=== PATIENT | female | born 1930 | race Caucasian/White ===

== ENCOUNTER 2018-05-24 10:43 | Inpatient (IN) | payer MEDICARE, BC ==
[~2018-05-24] VITALS: Ht 165.1 cm; Wt 68.0 kg
[2018-05-24] VITALS (7 sets, daily range): BP systolic 121–134; BP diastolic 67–74; BMI 25.0
--- NOTE | ~2018-05-24 | MORECARE ---
CASE MANAGEMENT DISCHARGE SUMMARY PATIENT: VIVI MONTOYA UNIT: [id number] ADM DATE: 05/24/18 AGE: 87 : 32 SEX: F ROOM/BED: D.3240 AUTHOR: RAY,DOC PHYSICIAN: REFERRING PHYSICIAN: DENNIS YOUNG MD DATE OF SERVICE: 05/28/18 Discharge Plan Patient Name: VIVI MONTOYA Facility: [facility]:[place] : 1930 Planned Disposition: Home Anticipated Discharge Date: 05/26/18 Discharge Date: 05/26/2018 Expected LOS: 2 Initial Reviewer: [email or web address] Initial Review Date: 05/24/2018 Generated: 05/28/18 10:02 am DCP- Discharge Planning Updated by [email or web address]: Viky Joseph on 05/24/18 2:[address] Patient Name: VIVI MONTOYA Admission Status: ER Accout number: [id number] Admission Date: 05-24-2018 : 1930 Admission Diagnosis: Attending: LIBORIO YOUNG Current LOS: 1 Anticipated DC Date: 05-26-2018 Planned Disposition: Home Primary Insurance: MEDICARE A & B Discharge Planning Comments: CM met with patient and her daughter, Ludy Fernández to complete initial dc planning assessment. CM educated patient on the CM role and verbal consent given by patient to complete assessment. Patient lives at home alone independently. At discharge patient plans to return home and feels this is a safe discharge. Daughter reports there is family that can stay with the patient at dc if needed. Patient stated she has a cane and a borrowed walker. She may want her own walker ordered at dc. CM discussed home health, rehab, and op therapy if needed at dc. Patient unsure of discharge needs at this time. CM will continue to follow and will assist as needed with dc plans/needs. See below for more assessment information. Is the patient Alert and Oriented? Yes * How many steps to enter\exit or inside your home? Two * PCP Dr. Gavin Ojeda * Pharmacy [facility] * Preadmission Environment Home Alone * ADLs Independent * Equipment Cane * Other Equipment has a borrowed walker * List name and contact numbers for known caregivers / representatives who currently or will assist patient after discharge: Maura Montoya - dtr in [place] [phone] Ludy bentley [phone] * Verbal permission to speak to the caregivers and representatives has been obtained from the patient. Yes * Community resources currently utilized None * Can the patient safely return to the preadmission environment? Yes * Has this patient been hospitalized within the prior 30 days at any hospital? No Community Organization Director: Viky Joseph DCPIA - Discharge Planning Initial Assessment Updated by [email or web address]: Viky Joseph on 05/24/18 3:51 pm * Is the patient Alert and Oriented? Yes * How many steps to enter\exit or inside your home? Two * PCP Dr. Gavin Ojeda * Pharmacy [facility] * Preadmission Environment Home Alone * ADLs Independent * Equipment Cane * Other Equipment has a borrowed walker * List name and contact numbers for known caregivers / representatives who currently or will assist patient after discharge: Maura Montoya - dtr in law [phone] Ludy bentley [phone] * Verbal permission to speak to the caregivers and representatives has been obtained from the patient. Yes * Community resources currently utilized None * Can the patient safely return to the preadmission environment? Yes * Has this patient been hospitalized within the prior 30 days at any hospital? No Last DP export: 05/24/18 2:54 Patient Name: VIVI MONTOYA Page 98458 at 0902 All edits/amendments must be made on the electronic document DICTATION DATE: 05/28/18901 MANAGER COMMUNITY: KEENA 05/28/18901 RPT#: [id number] DC DATE:05/26/18 STATUS: DIS IN [facility] [address] [place] [address] END OF REPORT
--- NOTE | ~2018-05-24 | HP ---
PATIENT: VIVI MONTOYA MEDICAL RECORD: [id number] ACCOUNT: [id number] LOCATION:[address] : [birth year] ADMISSION DATE: 05/24/18 PCP: BHARATHI POLANCO MD HISTORY AND PHYSICAL EXAMINATION ADMITTING DIAGNOSES: 1. Paroxysmal atrial fibrillation. 2. Angina. 3. Shortness of breath. 4. Hypertension. HISTORY OF PRESENT ILLNESS: Mrs. Montoya with no history of ischemic heart disease. She was awoken at 2:00 a.m. with chest discomfort and shortness of breath. This worsened over the evening. She presented to her local hospital, was found to be in atrial fibrillation. She has since converted to sinus rhythm. She was placed on a Cardizem drip as well as heparin drip. These have been since discontinued. We placed her on sotalol 40 mg b.i.d. She has no further episodes of chest discomfort at this time. PHYSICAL EXAMINATION: GENERAL APPEARANCE: Well-nourished, well-developed, appears stated age. Level of distress, comfortable. PSYCHIATRIC: Mental status, alert, normal affect. Orientation, oriented to time, place and person. EYES: Lids and conjunctiva, noninjected. No discharge, no pallor. ENT: Lips, teeth, gums, normal dentition. Oropharynx, no cyanosis, no pallor. NECK: Carotid arteries, bilateral normal upstroke, no bruits, no thrills. JUGULAR VEINS: No jugular venous pressure or distention. CERVICAL LYMPH NODES: Nontender, nonenlarged. THYROID: Not enlarged. Nontender. No nodules. LUNGS: Respiratory effort, unlabored. CHEST: Normal curvature. No thoracic deformity. No chest wall tenderness. Percussion, resonant. Auscultation, clear. No wheezes, no rales, no rhonchi. CARDIOVASCULAR: Precordial exam, nondisplaced. No heaves or pericardial thrills. Rate and rhythm, regular. Heart sounds, normal S1, normal S2. No S3, no gallop, no rub. Systolic murmur, not heard. Diastolic murmur, not heard. EXTREMITIES: No cyanosis, no edema. Peripheral pulses, full and equal in all extremities, except as noted. No bruits appreciated. ABDOMEN: Soft, nondistended. Normal aorta. No bruit. Nontender. No masses. Liver, nontender, no hepatomegaly. Spleen, nontender, no splenomegaly. MUSCULOSKELETAL: No joint tenderness. No joint swelling. No erythema. NEUROLOGICAL: Normal gait, normal strength, normal tone. SKIN: Warm and dry. OVERALL IMPRESSION: Atrial fibrillation converted to sinus rhythm; however, associated with chest discomfort. We will proceed with coronary angiography in the a.m. Further care depends upon findings of the angiography. Continue the sotalol therapy. TRANSINT:[id number] Voice Confirmation ID: [id number] DOCUMENT ID: [id number] HISTORY AND PHYSICAL [id number] VIVI MONTOYA JEFFREY MD at 0924 CC: [id number] DICTATION DATE: 05/24/18 1203 BREAD BAKER: 05/24/18 1221 ADM IN [facility] [address] [place] [id number]
--- NOTE | ~2018-05-24 | MORECARE ---
CASE MANAGEMENT DISCHARGE SUMMARY PATIENT: VIVI MONTOYA UNIT: [id number] ADM DATE: 05/24/18 AGE: 87 : [birth year] SEX: F ROOM/BED: D.2122 AUTHOR: LYLE BELL PHYSICIAN: REFERRING PHYSICIAN: DENNIS YOUNG MD DATE OF SERVICE: 05/24/18 Discharge Plan Patient Name: VIVI MONTOYA [facility] [facility] 1930 Planned Disposition: Home Anticipated Discharge Date: 05/26/18 Discharge Date: Expected LOS: 2 Initial Reviewer: [email or web address] Initial Review Date: 05/24/2018 Generated: 05/24/18 4:54 pm DCPIA - Discharge Planning Initial Assessment Updated by [email or web address]: Viky Joseph on 05/24/18 3:51 pm * Is the patient Alert and Oriented? Yes * How many steps to enter\exit or inside your home? Two * PCP Dr. Gavin Ojeda * Pharmacy [facility] * Preadmission Environment Home Alone * ADLs Independent * Equipment Cane * Other Equipment has a borrowed walker * List name and contact numbers for known caregivers / representatives who currently or will assist patient after discharge: Maura Montoya - dtr in law - [phone] Ludy Fernández - daughter - [phone] * Verbal permission to speak to the caregivers and representatives has been obtained from the patient. Yes * Community resources currently utilized None * Can the patient safely return to the preadmission environment? Yes * Has this patient been hospitalized within the prior 30 days at any hospital? No Patient Name: VIVI MONTOYA Page 99465 at 1554 All edits/amendments must be made on the electronic document DICTATION DATE: 05/24/181553 PACKAGE CAR DRIVER: KEENA 05/24/181553 RPT#: [id number] DC DATE: STATUS: ADM IN [facility] [address] [place] [address] END OF REPORT
--- NOTE | ~2018-05-24 | HEMODYNAMI ---
PATIENT:VIVI MONTOYA MEDICAL RECORD: [id number] : [birth year] LOCATION:[address] ADMISSION DATE: 05/24/18 Generatedon:05/25/201813:37 Patient name: VIVI MONTOYA Patient #: [id number] SSN: DO B: 1930 Date of study: 05/25/2018 Page: Of Hemodynamic Procedure Report Patient Data Patient Demographics Procedure consent was obtained First Name: VIVI Gender: Female Last Name: LINDSAY : 1930 Patient #: [id number] Age: 87 year(s) Race: Unknown Additional ID: [id number] Contact details [address]: [address] [place] [address] State: [place] City: [place] Zip code: [address] Past Medical History Allergies Allergen Reaction Date Comments Reported Other allergy 05/25/2018 PCN, CODEINE, IODINE, LATEX, MORPHINE, BACTRIM, A&D BARRIER Admission Admission Data Admission Date: 05/24/2018 Admission Time: 14:51 Room #: D.2123 Lab Results Lab Result Date: 05/25/2018 Lab Result Time: 0:00 Biochemistry Name Units Result Min Max BUN mg/dl 16 --(---*)-- 7 18 Creatinine mg/dl 0.9 --(-*--)-- 0.6 1.3 CBC Name Units Result Min Max Hemoglobin g/dl 11.6 *-(----)-- 13.5 17.5 Procedure Procedure Types Cath Procedure Diagnostic Procedure LHC LHC w/Coronaries Procedure Description Procedure Date Procedure Date: 05/25/2018 Procedure Start Time: 13:26 Procedure End Time: 13:35 Procedure Staff Name Function Prince Perez MD Performing Physician Jennifer Cerrato RT Monitor Evelina Garces RT Scrub Vini Montes RN Nurse Procedure Data Cath Procedure Fluoroscopy Diagnostic fluoroscopy Total fluoroscopy Time: 1.2 time: 1.2 min min Diagnostic fluoroscopy Total fluoroscopy dose: 378 dose: 378 mGy mGy Contrast Material Contrast Material Type Amount (ml) Isovue 300 45 Entry Location Entry Primary Successful Side Size Upsize Upsize Entry Closure Sheehan ccessful Closure Location (Fr) 1 (Fr) 2 (Fr) Remarks Device Remarks Radial Right 6 Fr Mechanical artery Short Compression Estimated blood loss: 5 ml Diagnostic catheters Device Type Used For End Catheter Placement DIAGNOSTIC [place] 110cm 5 Procedure Fr catheter ([id number]) Procedure Complications No complications Procedure Medications Medication Administration Route Dosage 0.9% NaCl I.V. 100 ml/hr Oxygen etCO2 Nasal cannula 2 l/min Heparin Flush Bag added to field 2 bags (1000units/500ml NS) Lidocaine 2% added to field 20 Radial Cocktail added to field 1 syringe (Verapomil 2mg/Nitro 400mcg/Heparin 1500units) Versed I.V. 1 mg Fentanyl I.V. 50 mcg Radial Cocktail I.A. 1 syringe (Verapomil 2mg/Nitro 400mcg/Heparin 1500units) Hemodynamics Rest HGB: 11.6 (g/dl) Heart Rate: 74 (bpm) Snapshots Pre Cath Intra NCS Post Cath Vital Signs Time Heart Resp SPO2 etCO2 NIBP (mmHg) Rhythm Pain Sedation Rate (ipm) (%) (mmHg) Status Level (bpm) 13:06:42 76 22 94 0 145/72(118) NSR 0 (11) 10(A) , No pain 13:10:58 78 18 91 0 131/72(101) NSR 0 (11) 10(A) , No pain 13:15:07 78 17 92 0 133/71(110) NSR 0 (11) 10(A) , No pain 13:19:20 73 18 93 0 133/72(111) NSR 0 (11) 10(A) , No pain 13:23:34 71 12 92 0 130/62(109) NSR 0 (11) 10(A) , No pain 13:27:43 76 14 92 0 129/69(107) NSR 0 (11) 9(A) , No pain 13:31:55 74 15 93 0 115/63(91) NSR 0 (11) 9(A) , No pain Medications Time Medication Route Dose Verified Delivered Reason Notes Effectiveness by by 13:03:12 0.9% NaCl I.V. 100 Vini Vini Per ml/hr Simon Montes physician RN RN 13:03:23 Oxygen etCO2 2 l/min Vini Vini Per Nasal Simon Montes physician cannula RN RN 13:03:42 Heparin Flush added 2 bags Vini Vini used for Bag to Simon Montes procedure (1000units/500ml field RN RN NS) 13:03:53 Lidocaine 2% added 20ml Vini Vini for local to vial Lorigan Lorigan anesthetic field RN RN 13:04:04 Radial Cocktail added 1 Vini Vini used for (Verapomil to syringe Lorigan Lorigan procedure 2mg/Nitro field RN RN 400mcg/Heparin 1500units) 13:25:39 Versed I.V. 1 mg Vini Vini for sedation Simon Montes RN RN 13:25:48 Fentanyl I.V. 50 mcg Vini Vini for sedation Simon Montes RN RN 13:28:14 Radial Cocktail I.A. 1 Vini Prince for (Verapomil syringe Lorigan Tauth MD vasodilation 2mg/Nitro RN 400mcg/Heparin 1500units) Procedure Log Time Note 12:39:38 Signed procedure consent form obtained from patient. 12:39:42 Jennifer Cerrato RT(R) sent for patient. Start room use. 12:39:43 Time tracking: Regular hours (M-F 7:00 - 5:00) 12:39:46 Plan of Care:Hemodynamics will remain stable., Cardiac rhythm will remain stable., Comfort level will be maintained., Respiratory function will remain adequate., Patient/ family verbilizes understanding of procedure., Procedure tolerated without complication., Recovers from procedure without complications.. 12:39:57 H&P Date Dictated: 05/24/2018 Within 30 days and on chart.. 13:03:12 0.9% NaCl 100 ml/hr I.V. was administered by Vini Montes RN; Per physician; 13:03:23 Oxygen 2 l/min etCO2 Nasal cannula was administered by Vini Montes RN; Per physician; 13:03:42 Heparin Flush Bag (1000units/500ml NS) 2 bags added to field was administered by Vini Montes RN; used for procedure; 13:03:53 Lidocaine 2% 20ml vial added to field was administered by Vini Montes RN; for local anesthetic; 13:04:00 Patient received from Med II to CCL 2 Alert and oriented. Tansferred to table in Supine position. 13:04:01 Warm blankets applied, and elizabeth hugger turned on for patient comfort. 13:04:02 Correct patient and procedure confirmed by team. 13:04:02 ECG and BP/O2 sat monitors applied to patient. 13:04:04 Radial Cocktail (Verapomil 2mg/Nitro 400mcg/Heparin 1500units) 1 syringe added to field was administered by Vini Montes RN; used for procedure; 13:05:28 Vital chart was started 13:05:31 Baseline sample Acquired. 13:05:35 Rhythm: sinus rhythm 13:05:37 Full Disclosure recording started 13:05:37 Pre-procedure instructions explained to patient. 13:05:38 Pre-op teaching completed and patient verbalized understanding. 13:05:40 Family in patients room. 13:05:41 Patient NPO since Midnight. 13:06:37 Patient allergic to Other allergyPCN, CODEINE, IODINE, LATEX, MORPHINE, BACTRIM, A&D BARRIER 13:07:53 PATIENT STATES SHE IS NOT ALLEGERIC TO IODINE, WENT AHEAD AND PRETREATED 13:07:55 Is patient on blood thinner?No 13:07:56 Patient diabetic? No. 13:07:58 Patient not . Patient is over age 57. 13:08:01 Previous problem with sedation/anesthesia? No ? 13:08:02 Snore? Yes 13:08:04 Sleep apnea? No 13:08:04 Deviated septum? No 13:08:05 Opens mouth fully? Yes 13:08:06 Sticks out tongue? Yes 13:08:14 Airway obstruction? Yes ASTHMA 13:08:17 Dentures? No ? 13:08:19 Modified Ramiro's test Ulnar < 7 seconds 13:08:27 IV patent on arrival in left antecubital with 0.9% NaCl at [facility]. 13:08:44 Lab Result : BUN 16 mg/dl 13:08:44 Lab Result : Creatinine 0.9 mg/dl 13:08:44 Lab Result : Hemoglobin 11.6 g/dl 13:08:47 Lab results completed and on chart. 13:08:53 Right Radial & Right Groin area was prepped with chlora-prep and draped in sterile fashion 13:08:54 Alarms reviewed by RIsaac NIsaac 13:08:54 Navarros counted by scrub and verified by R.N. 13:09:01 Use device set Radial Dx or PCI 13:09:02 ACIST Syringe (90837) opened to sterile field. 13:09:03 Bag Decanter (2002S) opened to sterile field. 13:09:04 ACIST Hand Control (96120) opened to sterile field. 13:09:04 ACIST Manifold (98701) opened to sterile field. 13:09:05 Tegaderm 4 x 4 (1626W) opened to sterile field. 13:09:06 Medline Cath Pack ([id number]) opened to sterile field. 13:09:06 DIAGNOSTIC WIRE .035 260cm J wire (769093) opened to sterile field. 13:09:07 MBrace Wrist Support ([id number]) opened to sterile field. 13:09:08 SHEATH 6Fr Prelude Radial ([id number]) opened to sterile field. 13:25:11 --------ALL STOP TIME OUT------ 13:25:11 Final Timeout: patient, procedure, and site verified with staff and physician. All members of the team are in agreement. 13:25:13 Right Radial & Right Groin site verified by team. 13:25:15 Physical assessment completed. ASA score P 2 - A patient with mild systemic disease as per Prince Perez MD. 13:25:17 Sedation plan: IV Moderate Sedation Medication:Versed, Fentanyl 13:25:39 Versed 1 mg I.V. was administered by Vini Montes RN; for sedation; 13:25:48 Fentanyl 50 mcg I.V. was administered by Vini Montes RN; for sedation; 13:26:08 Procedure started. 13:26:12 Zero performed for pressure channel P1 13:26:51 Local anesthetic to right radial artery with Lidocaine 2% by Prince Perez MD.INITIAL ACCESS ONLY 13:27:37 A 6 Fr Short sheath was inserted into the Right Radial artery 13:27:50 A DIAGNOSTIC [place] 110cm 5 Fr catheter (868000) was advanced over the wire and used for Procedure. 13:28:14 Radial Cocktail (Verapomil 2mg/Nitro 400mcg/Heparin 1500units) 1 syringe I.A. was administered by Prince Perez MD; for vasodilation; 13:28:27 LV gram done using BERGERON 13:28:42 Injector settings: Ml/sec: 7, Volume: ?, 13:29:11 EF : 40 % 13:29:41 LCA angiography performed. 13:30:10 RCA angiography performed. 13:30:37 Catheter removed. 13:30:49 TR BAND Standard ([id number]) opened to sterile field. 13:31:45 Procedure ended.(Physican Out) 13:32:46 Sheath removed intact; hemostasis achieved with Mechanical Compression to the Right Radial artery. 13:33:14 Fluoroscopy time 01.20 minutes. 13:33:19 Fluoroscopy dose: 378 mGy 13:33:19 Flurop Dose total: 378 13:33:23 Contrast amount:Isovue 300 45ml. 13:33:31 Sharps counted by scrub and verified by R.N. 13:33:33 TR band inflated with 10cc of air. 13:33:38 Post-procedure physical assessment completed. ASA score P 2 - A patient with mild systemic disease as per Prince Perez MD. 13:33:46 Post procedure rhythm: sinus rhythm 13:33:55 Estimated blood loss: 5 ml 13:33:56 Post procedure instruction explained to patient.Patient verbalizes understanding. 13:33:57 Patient needs reinforcement of post procedure teaching. 13:34:57 Procedure and supply charges have been captured, reviewed, submitted and are correct. 13:35:00 Procedure Complication : No complications 13:35:01 Vital chart was stopped 13:35:01 See physician's report for complete and final results. 13:35:06 Report given to [facility]. 13:35:08 Patient transfered to [facility] with Bed. 13:35:10 Procedure ended. 13:35:10 Full Disclosure recording stopped 13:35:15 End room use (Document Last) Device Usage Item Name Manufacture Quantity Catalog Number Hospital Part Current M inimal Lot# / Charge Number Stock Stock Serial# Code ACIST Syringe Acist 1 68858 107756 [id number] [id number] 2 0 (10228) [employer] Bag Decanter Microtek 1 463198 13876 954925 5 () Medical Inc. ACIST Hand Acist 1 60760 091294 676269 745516 5 Control (80512) [employer] Inc ACIST Manifold Acist 1 35021 897679 418082 774832 5 (04689) [employer] Inc Tegaderm 4 x 4 3M 1 1626W 887650 248950 390891 5 (1626W) Medline Cath Medline 1 [id number] 657780 02709 749986 5 Pack ([id number]) DIAGNOSTIC WIRE [facility] [place] 1 615319 635968 546904 993300 3 0 .035 260cm J wire (214899) MBrace Wrist Advanced 1 140-0250-00 788029 07942 960992 5 Support Vascular ([id number]) Dynamics SHEATH 6Fr Merit 1 [id number] 991395 996925 879877 5 Prelude Radial Medical ([id number]) DIAGNOSTIC Terumo 1 12-7820 374977 456231 695891 5 [place] 110cm 5 Fr catheter (190218) TR BAND Terumo 1 [id number] 517195 702035 930525 4 0 Standard ([id number]) Signature Audit [place] Stage Time Signature Unsigned Intra-Procedure 05/25/2018 Jennifer Cerrato 1:37:08 PM RT(R) Signatures Monitor : Jennifer Cerrato Signature : RT Date : Time : [address] [address]
--- NOTE | ~2018-05-24 | DS ---
PATIENT:VIVI MONTOYA :34 MEDICAL RECORD: [id number] DISCHARGE SUMMARY ADMISSION DATE: 05/24/18 DISCHARGE DATE: 05/26/18 DISCHARGE DIAGNOSES: 1. Paroxysmal atrial fibrillation. 2. Pneumonia. HOSPITAL COURSE: Ms. Montoya presents with atrial fibrillation, found to have a slight pneumonia. She converted pharmacologically, was placed on sotalol 40 mg b.i.d. Had no further atrial fibrillation. She did have chest pain with the atrial fibrillation. Underwent cardiac catheterization, which was normal. She was treated with Rocephin and Zithromax for the pneumonia. She was sent home to continue the Zithromax. Will follow up with her primary care physician in [place]. Will follow up with [facility] in 1 month. TRANSINT:[id number] Voice Confirmation ID: [id number] DOCUMENT ID: [id number] DENNIS YOUNG MD at 1914 CC: [id number] DICTATION DATE: 05/26/18 09 MANAGER INCOME TAX: 05/27/18 1005 DIS IN 05/26/18 [facility] [address] [place] [address]
[2018-05-24 11:31] LABS: HEMATOCRIT 34.7 % (36.0-48.0); HEMOGLOBIN 12.1 g/dL (12-16); LYMPHOCYTES 13.2 % (15-50); MCH 31.3 pg (26.0-34.0); MCHC 34.9 g/dL (31.0-37.0); MCV 89.7 fL (80.0-100.0); MEAN PLATELET VOLUME 9.4 fL (7.4-10.4); NEUTROPHILS 85.3 % (40-80); PLATELET COUNT 275 10x3/uL (130-400); RBC 3.87 10x6/uL (4.00-5.40); RDW 14.7 % (11.5-14.5); WBC 13.2 10x3/uL (4.8-10.8)
[2018-05-24 11:32] LABS: INR 1.1 (0.85-1.17); PROTIME 13.8 SECONDS (11.6-15.0)
[2018-05-24 11:34] LABS: ALBUMIN 3.1 g/dL (3.4-5.0); ALKALINE PHOSPHATASE 59 U/L (46-116); ALT (SGPT) 26 U/L (10-68); APTT 124.3 SECONDS (22.8-39.4); BILIRUBIN - TOTAL 0.46 mg/dL (0.2-1.3); CALC OSMOLALITY 280 mosm/kg (275-300); CHLORIDE - SERUM 99 mmol/L (98-107); CREATININE - SERUM 1.1 mg/dL (0.6-1.3); GLUCOSE 130 mg/dL (74-106); POTASSIUM - SERUM 3.8 mmol/L (3.5-5.1); PROTEIN - SERUM 6.8 g/dL (6.4-8.2); SODIUM 138 mmol/L (136-145); UREA NITROGEN 20 mg/dL (7-18); eGFR NON AFRICAN AMERICAN 50 mL/min (90-120)
[2018-05-24 11:46] LABS: CKMB 1.4 U/L (0.0-3.6); CREATINE KINASE 69 UL (21-215); MAGNESIUM - SERUM 1.6 mg/dL (1.8-2.4); TROPONIN-I 0.048 ng/mL (0.000-0.060)
[2018-05-24] MEDS ORDERED: SYNTHROID125 MCG PO (18:23)
[2018-05-24] MEDS ORDERED: MIRALAX17 GM PO (18:24)
[2018-05-24] MEDS ORDERED: COZAAR50 MG PO (18:24)
[2018-05-24] MEDS ORDERED: OMEPRAZOLE20 M1 PO (18:25)
[2018-05-24] MEDS ORDERED: NORVASC5 MG PO (18:25)
[2018-05-24] MEDS ORDERED: CITRACAL + D E1 EACH PO (18:26)
[2018-05-24] MEDS ORDERED: CENTRUM SILVER1 EAC3 PO (18:28)
[2018-05-25 00:56] VITALS: BP 110/56
[2018-05-25 06:21] VITALS: BP 133/64
[2018-05-25 06:36] LABS: BASOPHILS 0.4 % (0-2); EOSINOPHILS 1.1 % (0-7); HEMATOCRIT 34.1 % (36.0-48.0); HEMOGLOBIN 11.6 g/dL (12-16); IMMATURE GRANULOCYTES 0.2 % (0-5); LYMPHOCYTES 15.6 % (15-50); MCH 31.4 pg (26.0-34.0); MONOCYTES 6.1 % (2-11); NEUTROPHILS 76.6 % (40-80); PLATELET COUNT 242 10x3/uL (130-400); RBC 3.69 10x6/uL (4.00-5.40); RDW 14.8 % (11.5-14.5)
[2018-05-25 06:44] LABS: CALCIUM 8.2 mg/dL (8.5-10.1); CARBON DIOXIDE 26.5 mmol/L (21.0-32.0); CREATININE - SERUM 0.9 mg/dL (0.6-1.3); POTASSIUM - SERUM 3.5 mmol/L (3.5-5.1)
[2018-05-25 06:46] LABS: MCV 92.4 fL (80.0-100.0); WBC 9.1 10x3/uL (4.8-10.8)
[2018-05-25 08:03] VITALS: BP 137/67
[2018-05-25 11:42] VITALS: BP 141/96
[2018-05-25 14:04] VITALS: Ht 165.1 cm; Wt 68.0 kg
[2018-05-25 15:58] VITALS: BP 128/58
[2018-05-25 20:00] VITALS: BP 116/53
[2018-05-26] VITALS: BP 121/61
[2018-05-26 06:04] VITALS: BP 138/68
[2018-05-26 08:00] VITALS: BP 140/68
[2018-05-26] MEDS ORDERED: BETAPACE 80 MG80 MG PO (10:08)
[2018-05-26] MEDS ORDERED: ZPAK PO (10:09)
== END 2018-05-26 14:04 | disposition home or self-care (01) | DRG 286 ==
LOC: D.ER 10:43 → D.M2 14:51 → D.EDHOLD 14:51 → D.M2 15:34
PROVIDERS: Family Medicine; Internal Medicine Interventional Cardiology
PROC: B2151ZZ Fluoroscopy of Left Heart using Low Osmolar Contrast (ICD-10-PCS; 2018-05-25)
PROC: 4A023N7 Measurement of Cardiac Sampling and Pressure, Left Heart, Percutaneous Approach (ICD-10-PCS; 2018-05-25)
PROC: B2111ZZ Fluoroscopy of Multiple Coronary Arteries using Low Osmolar Contrast (ICD-10-PCS; principal; 2018-05-25 12:39)
DX: I48.0 Paroxysmal atrial fibrillation (principal); J18.9 Pneumonia, unspecified organism; I44.7 Left bundle-branch block, unspecified; I10 Essential (primary) hypertension